=== PATIENT | male | born 1960 | race Caucasian/White ===

== ENCOUNTER 2020-12-17 06:28 | Day surgery (SDC) | payer OTHER ==
[~2020-12-17] VITALS: Ht 165.1 cm; Wt 66.5 kg
[2020-12-17 06:55] VITALS: BP 130/88; PULSE 88; TEMP 97.3
[2020-12-17] MEDS ORDERED: SYNTHROID0.05 MG/TA PO (07:00)
[2020-12-17] MEDS ORDERED: LIPITOR 40MG TA40 MG PO (07:00)
[2020-12-17 08:05] VITALS: BP 102/81; PULSE 80; TEMP 97.4
[2020-12-17 08:20] VITALS: BP 110/78; PULSE 79
[2020-12-17 08:35] VITALS: BP 108/84; PULSE 80
--- NOTE | 2020-12-17 08:56 | NUR ---
PT RETURNED FROM THE ENDO PROCEDURE SUITE INTO BAY #1. IS PRESENT. PT IS ALERT AND ORIENTATED. DENIES PAIN AND NAUSEA. LUNGS CLEAR, HRR, BOWEL SOUNDS PRESENT AND ACTIVE X4. PT REQUESTED COFFEE AND FERMIN CRACKERS. IVF PATENT INTO RIGHT HAND. WILL CONT TO MONITOR PROGRESS. CALL LIGHT IN REACH.
--- NOTE | 2020-12-17 09:00 | NUR ---
PT TOLERATING FOOD AND FLUIDS, PT TALKING WITH . PT ALERT AND ORIENTATED. PT READY TO GO HOME.
--- NOTE | 2020-12-17 09:01 | NUR ---
PT CONTINUES TO TOLERATE FOOD AND FLUIDS. DENIES NAUSEA AND VOMITING. IV DC'D TO RIGHT HAND. PT TOLERATED WELL. DISCHARGE INSTRUCTIONS GIVEN, DISMISSAL INSTRUCTIONS SIGNED. DENIES QUESTIONS. PT WAS TAKEN TO OUTPATIENT ENTRANCE TO FAMILY VEHICLE. PT , DAVON CONCEPCION.
== END 2020-12-17 08:45 | disposition home or self-care (01) ==
LOC: SDCO 06:28
DX: Z12.11 Encounter for screening for malignant neoplasm of colon (principal); K64.0 First degree hemorrhoids; E03.9 Hypothyroidism, unspecified; E78.5 Hyperlipidemia, unspecified; G47.00 Insomnia, unspecified; Z79.899 Other long term (current) drug therapy; Z86.73 Personal history of transient ischemic attack (TIA), and cerebral infarction without residual deficits; Z86.010 Personal history of colon polyps; Z79.890 Hormone replacement therapy
CPT/HCPCS: J2704; J7120